=== PATIENT | female | born 1970 | race Caucasian/White ===

== ENCOUNTER 2021-08-30 12:14 | Emergency (ER) | payer BC ==
[~2021-08-30] VITALS: Ht 171.4 cm; Wt 68.0 kg
[2021-08-30 12:24] VITALS: BP 98/67
[2021-08-30] MEDS ORDERED: iohexol 300mg/ml 100ml inj. ONE (14:25)
[2021-08-30 14:30] LABS: BASOPHILS # (AUTO) 0.1 X10'3 (0-0.2); BASOPHILS % (AUTO) 0.3 % (0-1); EOSINOPHILS % (AUTO) 0 % (0-6); HEMOGLOBIN 13.5 g/dl (12.0-16.0); LYMPHOCYTES # (AUTO) 2.1 X10'3 (1.1-4.8); LYMPHOCYTES % (AUTO) 14.2 % (21-51); MEAN CORPUSCULAR HEMOGLOBIN 29.6 PG (27.0-31.0); MEAN CORPUSCULAR HGB CONC 34.7 g/dL (33.0-36.5); MEAN CORPUSCULAR VOLUME 85.4 FL (78-98); MEAN PLATELET VOLUME 8.7 FL (7.4-10.4); MONOCYTES # (AUTO) 1.1 X10'3 (0-0.9); MONOCYTES % (AUTO) 7.2 % (2-12); NEUTROPHILS # (AUTO) 11.6 X10'3 (1.8-7.7); NEUTROPHILS % (AUTO) 78.3 % (42-75); PLATELET COUNT 245 X10'3 (140-440); RED BLOOD COUNT 4.57 X10'6 (4.20-5.60); RED CELL DISTRIBUTION WIDTH 12.5 % (11.5-14.5); WHITE BLOOD COUNT 14.9 X10'3 (4.5-11.0)
[2021-08-30 14:33] LABS: ALANINE AMINOTRANSFERASE 28 U/L (12-78); ALBUMIN 3.6 G/DL (3.4-5.0); ALBUMIN/GLOBULIN RATIO 0.8 (1.1-1.5); ALKALINE PHOSPHATASE 112 IU/L (46-116); ANION GAP 12 (8-16); ASPARTATE AMINO TRANSFERASE 19 U/L (10-37); BILIRUBIN,TOTAL 0.6 MG/DL (0.1-1.0); BLOOD UREA NITROGEN 14 MG/DL (7-18); CHLORIDE 102 MMOL/L (99-107); GLUCOSE 119 MG/DL (70-104); POTASSIUM 3.1 MMOL/L (3.5-5.1); SODIUM 143 MMOL/L (135-145); TOTAL CARBON DIOXIDE 29.5 MMOL/L (24-32); TOTAL PROTEIN 8.3 G/DL (6.4-8.2); eGFR 59 ML/MIN
[2021-08-30] MEDS ORDERED: penicillin G benzathine 1.2 million unit/2ml syringe IM ONE (15:20)
[2021-08-30] MEDS ORDERED: ketorolac tromethamine 15mg/ml inj. IV ONE (15:20)
[2021-08-30] MEDS ORDERED: PENICILLIN G BENZATHINE 2,400,000 UNIT/4 ML SYRINGE IM ONE ×2 (15:30→15:35)
--- NOTE | 2021-09-02 12:07 | NUR ---
PT CALLED REGARDING LAB WORK WITH NO ABX ORDERED, PHONE# ON FILE NOT IN SERVICE, LETTER SENT.
== END 2021-08-30 16:30 | disposition home or self-care (01) ==
LOC: ER 12:15
DX: J03.90 Acute tonsillitis, unspecified (principal); Z20.822 Contact with and (suspected) exposure to COVID-19; R07.0 Pain in throat; R50.9 Fever, unspecified
CPT/HCPCS: 36415; 70491; 80053; 84145; 85025; 87077; 87081; 87635; 87880; 96372; 96374; 99285; C9803; J0561; J1885; Q9967